=== PATIENT | female | born 1990 | race Caucasian/White ===

== ENCOUNTER 2017-01-14 23:37 | Emergency (ER) | payer SELFPAY ==
[~2017-01-14] VITALS: Ht 167.6 cm; Wt 75.0 kg
[2017-01-14 23:38] VITALS: BP 107/70; PULSE 98; RESP 16; TEMP 98.7; O2SAT 99
== END 2017-01-15 00:35 | disposition left against medical advice (07) ==
LOC: NED 23:37
DX: R07.9 Chest pain, unspecified (principal)
CPT/HCPCS: 99281